=== PATIENT | male | born 1955 | race Caucasian/White ===

== ENCOUNTER → 2023-05-29 | Outpatient (CLI) | payer MEDICARE, OTHER ==
[~2023-05-29] MED LIST: iohexol 300mg/ml 100ml inj. ONE
== END | disposition home or self-care (01) ==
LOC: RAD 10:13
PROVIDERS: ATTEND Internal Medicine Infectious Disease
DX: K75.0 Abscess of liver (principal); K44.9 Diaphragmatic hernia without obstruction or gangrene; M85.88 Other specified disorders of bone density and structure, other site; M47.816 Spondylosis without myelopathy or radiculopathy, lumbar region
CPT/HCPCS: 74178; J3490; Q9967

== ENCOUNTER 2023-06-09 07:05 | Day surgery (SDC) | payer MEDICARE, OTHER ==
[2023-06-09] VITALS (14 sets, daily range): BP systolic 109–139; BP diastolic 75–94; PULSE 75–88; RESP 14–16; TEMP 98.2; O2SAT 95–100
[~2023-06-09] VITALS: Ht 188 cm; Wt 83.0 kg
[2023-06-09] MEDS ORDERED: normal saline 1000ml 1,000 ML IV PRN (07:25)
[2023-06-09 08:03] LABS: BASOPHILS # (AUTO) 0.1 X10'3 (0-0.2); BASOPHILS % (AUTO) 0.9 % (0-1); EOSINOPHILS # (AUTO) 0.3 X10'3 (0-0.9); EOSINOPHILS % (AUTO) 3.4 % (0-6); HEMATOCRIT 32.8 % (42.0-52.0); HEMOGLOBIN 10.5 g/dl (14.0-17.9); LYMPHOCYTES # (AUTO) 1.8 X10'3 (1.1-4.8); LYMPHOCYTES % (AUTO) 24.4 % (21-51); MEAN CORPUSCULAR HGB CONC 32.1 g/dL (33.0-36.5); MEAN CORPUSCULAR VOLUME 90.2 FL (78-98); MEAN PLATELET VOLUME 6.9 FL (7.4-10.4); MONOCYTES # (AUTO) 0.6 X10'3 (0-0.9); MONOCYTES % (AUTO) 7.6 % (2-12); NEUTROPHILS # (AUTO) 4.8 X10'3 (1.8-7.7); NEUTROPHILS % (AUTO) 63.7 % (42-75); PLATELET COUNT 382 X10'3 (140-440); RED BLOOD COUNT 3.63 X10'6 (4.70-6.10); RED CELL DISTRIBUTION WIDTH 17.8 % (11.5-14.5); WHITE BLOOD COUNT 7.6 X10'3 (4.5-11.0)
[2023-06-09] MEDS ORDERED: ISOS60TA71 PO (08:20)
[2023-06-09] MEDS ORDERED: CARB30DR9 RIGHTEYE (08:20)
[2023-06-09] MEDS ORDERED: CARB30DR9 LEFTEYE (08:20)
[2023-06-09] MEDS ORDERED: RIVA20TA PO (08:20)
[2023-06-09] MEDS ORDERED: HYDR1VIA2 (08:20)
[2023-06-09] MEDS ORDERED: POTA-207 PO (08:20)
[2023-06-09] MEDS ORDERED: MELA1TAB25 SL (08:20)
[2023-06-09] MEDS ORDERED: ASPI-10 PO (08:20)
[2023-06-09] MEDS ORDERED: ROSU5TAB PO (08:20)
[2023-06-09] MEDS ORDERED: AMIO200T72 PO (08:20)
[2023-06-09] MEDS ORDERED: META-25 PO (08:20)
[2023-06-09] MEDS ORDERED: [UNRECOGNIZED DRUG - CODE] PO (08:20)
[2023-06-09] MEDS ORDERED: OXYC-658 PO (08:20)
[2023-06-09] MEDS ORDERED: NITR0.4T48 SL (08:20)
[2023-06-09] MEDS ORDERED: OMEP20CA16 PO (08:20)
[2023-06-09] MEDS ORDERED: LIDOcaine 1% 30ml preserv. free vial ONE (09:36)
[2023-06-09] MEDS ORDERED: fentaNYL/PF 50MCG/1 ML 2ML syringe ONE (09:50)
[2023-06-09] MEDS ORDERED: midazolam 1 mg/ML 2ml injection ONE (09:50)
[2023-06-09 10:04] LABS: INR 1.2 INR
== END 2023-06-09 13:20 ==
LOC: SSTAY O 07:05
PROVIDERS: ATTEND Radiology Vascular & Interventional Radiology
DX: K94.02 Colostomy infection (principal); E66.9 Obesity, unspecified; Z68.23 Body mass index [BMI] 23.0-23.9, adult; Z98.890 Other specified postprocedural states; Z90.49 Acquired absence of other specified parts of digestive tract; Z88.8 Allergy status to other drugs, medicaments and biological substances; Z79.899 Other long term (current) drug therapy; Y83.3 Surgical operation with formation of external stoma as the cause of abnormal reaction of the patient, or of later complication, without mention of misadventure at the time of the procedure
CPT/HCPCS: 10030; 36415; 85025; 85610; 87070; 87075; 87077; 87102; 87186; C1729; C1769; J2250; J3010; J3490; J7030; 27040; 99152; 99153; A4421; A4615; A6258

== ENCOUNTER → 2023-06-26 | Outpatient (CLI) | payer MEDICARE, OTHER ==
[~2023-06-26] MED LIST changes: +AMIO200T72 PO; +ASPI-10 PO; +CARB30DR9 LEFTEYE; +CARB30DR9 RIGHTEYE; +HYDR1VIA2; +ISOS60TA71 PO; +MELA1TAB25 SL; +META-25 PO; +NITR0.4T48 SL; +OMEP20CA16 PO; +OXYC-658 PO; +POTA-207 PO; +RIVA20TA PO; +ROSU5TAB PO; +[UNRECOGNIZED DRUG - CODE] PO
== END | disposition home or self-care (01) ==
LOC: RAD 08:07
PROVIDERS: ATTEND Internal Medicine Infectious Disease
DX: K75.0 Abscess of liver (principal); J98.11 Atelectasis
CPT/HCPCS: 74178; J3490; Q9967